=== PATIENT | male | born 1960 | race Native Hawaiian/Other Pacific Islander ===

== ENCOUNTER 2016-11-07 12:18 | Emergency (ER) | payer OTHER ==
[~2016-11-07] VITALS: Ht 182.9 cm; Wt 122.5 kg
[~2016-11-07 12:18] MED LIST: ALBUTEROL0.083 % IN; ALPR0.5T24 PO; AMLO10TA PO; AMLO2.5T PO; ASA LO-DOSE81 MG PO; CYCL10TA35 PO; DIGOXIN0.25 MG PO; FLUT0.05 NAS; HYDR-2748 PO; IBUP800T30 PO; IPRASOL5 IN; LISI10TA11 PO; PENI500T14 PO; SIMV10TA PO; TRAM50TA PO
[2016-11-07 12:45] VITALS: BP 148/95; TEMP 98.6
== END 2016-11-07 13:55 | disposition home or self-care (01) ==
LOC: ED 12:18
DX: K04.7 Periapical abscess without sinus (principal); R68.84 Jaw pain
CPT/HCPCS: 96365; 96375; 99284; J0696; J1885

== ENCOUNTER 2016-12-14 11:13 | Emergency (ER) | payer OTHER ==
[~2016-12-14] VITALS: Ht 182.9 cm; Wt 99.8 kg
[2016-12-14 12:35] VITALS: BP 161/90; TEMP 98.2
== END 2016-12-14 12:35 | disposition home or self-care (01) ==
LOC: ED 11:13
DX: K08.89 Other specified disorders of teeth and supporting structures (principal); K04.7 Periapical abscess without sinus
CPT/HCPCS: 99282

== ENCOUNTER 2017-05-11 14:41 | Emergency (ER) | payer OTHER ==
[~2017-05-11] VITALS: Ht 182.9 cm; Wt 122.5 kg
[2017-05-11 15:50] LABS: PLATELET COUNT 217 K/uL (142-355)
[2017-05-11 15:57] LABS: POTASSIUM 3.8 mmol/L (3.6-5.2); SODIUM 137 mmol/L (136-145)
[2017-05-11 19:28] VITALS: BP 154/97; TEMP 98.2
== END 2017-05-11 19:28 | disposition home or self-care (01) ==
LOC: ED 14:41
PROVIDERS: Emergency Medicine
DX: J44.1 Chronic obstructive pulmonary disease with (acute) exacerbation (principal)
CPT/HCPCS: 36415; 36600; 80053; 82550; 82805; 83880; 84484; 85027; 94640; 94664; 94760; 96365; 96375; 99284; J0696; J2930

== ENCOUNTER 2017-09-18 13:25 | Outpatient (CLI) | payer OTHER | END 2017-09-18 19:22 | disposition home or self-care (01) | LOC: RAD 13:25 | DX: M47.816 Spondylosis without myelopathy or radiculopathy, lumbar region (principal); M46.1 Sacroiliitis, not elsewhere classified ==

== ENCOUNTER 2019-08-26 05:35 | Outpatient (CLI) | payer OTHER ==
[2019-08-26] MEDS ORDERED: PERCOCET1 TA3 PO (10:33)
[2019-08-26] MEDS ORDERED: GABA300C2 PO (10:35)
[2019-08-26] MEDS ORDERED: CLON0.1T16 PO (10:36)
[2019-08-26] MEDS ORDERED: PROAIR HFA INH (10:39)
[2019-08-26] MEDS ORDERED: EDLUAR10 MG PO (10:41)
[2019-08-27] MEDS ORDERED: [UNRECOGNIZED DRUG - OTHER] IVP (13:14)
== END 2019-08-26 05:42 | disposition short-term general hospital (02) ==
LOC: AMB 05:35
DX: R06.09 Other forms of dyspnea (principal); I48.91 Unspecified atrial fibrillation
CPT/HCPCS: A0425; A0427

== ENCOUNTER 2019-08-26 05:44 | Inpatient (IN) | payer OTHER ==
[2019-08-26] VITALS (7 sets, daily range): BP systolic 104–148; BP diastolic 60–96; TEMP 97.9–98.9; Ht 182.9 cm; Wt 117.2 kg
[~2019-08-26] VITALS: Ht 182.9 cm; Wt 117.2 kg
[2019-08-26 06:18] LABS: POTASSIUM 3.8 mmol/L (3.6-5.2); SODIUM 136 mmol/L (136-145)
[2019-08-26 06:26] LABS: PLATELET COUNT 251 K/uL (142-355)
[2019-08-26 06:46] LABS: PARTIAL THROMBOPLASTIN TIME 26.8 SECONDS (24.5-33.6)
[2019-08-26] MEDS ORDERED: PERCOCET1 TA3 PO (10:33)
[2019-08-26] MEDS ORDERED: GABA300C2 PO (10:35)
[2019-08-26] MEDS ORDERED: CLON0.1T16 PO (10:36)
[2019-08-26] MEDS ORDERED: PROAIR HFA INH (10:39)
[2019-08-26] MEDS ORDERED: EDLUAR10 MG PO (10:41)
[2019-08-26 16:12] LABS: POTASSIUM 4.3 mmol/L (3.6-5.2)
[2019-08-27 04:05] VITALS: BP 127/52; TEMP 98.4
[2019-08-27 06:00] LABS: PLATELET COUNT 140 K/uL (142-355)
[2019-08-27 09:20] VITALS: BP 132/77; TEMP 98
[2019-08-27] MEDS ORDERED: [UNRECOGNIZED DRUG - OTHER] IVP (13:14)
[2019-08-27 20:00] VITALS: BP 162/81; TEMP 98.4
[2019-08-28] VITALS: BP 167/84; TEMP 99.1
[2019-08-28 04:00] VITALS: BP 151/71; TEMP 98.6
[2019-08-28 11:13] LABS: PLATELET COUNT 153 K/uL (142-355)
[2019-08-28 13:23] VITALS: BP 140/70; TEMP 98.4
[2019-08-28] MEDS ORDERED: ZESTRIL40 MG PO (14:34)
[2019-08-28 16:33] VITALS: BP 146/59; TEMP 98.4
[2019-08-28 20:00] VITALS: BP 179/82; TEMP 99.1
[2019-08-29] VITALS: BP 153/65; TEMP 98.8
[2019-08-29 04:00] VITALS: BP 151/70; TEMP 98.3
[2019-08-29 05:01] LABS: POTASSIUM 3.5 mmol/L (3.6-5.2)
[2019-08-29 05:30] LABS: PLATELET COUNT 156 K/uL (142-355)
[2019-08-29 08:37] VITALS: BP 147/78; TEMP 98.5
[2019-08-29] MEDS ORDERED: FLUC150T PO (09:57)
[2019-08-29] MEDS ORDERED: Flonase Nasal Inhale NAS (09:58)
[2019-08-29] MEDS ORDERED: LEVAQUIN 500MG TAB PO (09:59)
[2019-08-29] MEDS ORDERED: PRED10TA27 PO (10:00)
[2019-08-29] MEDS ORDERED: XOPENEX 1.25MG INH 3 INH (10:00)
== END 2019-08-29 18:44 | disposition home or self-care (01) | DRG 189 ==
LOC: ED 05:44 → MED/SURG 07:15
PROVIDERS: Internal Medicine; ADMIT Hospitalist
DX: J96.00 Acute respiratory failure, unspecified whether with hypoxia or hypercapnia (principal); I48.91 Unspecified atrial fibrillation; N39.0 Urinary tract infection, site not specified; J44.1 Chronic obstructive pulmonary disease with (acute) exacerbation; I10 Essential (primary) hypertension; Z86.12 Personal history of poliomyelitis; Z72.0 Tobacco use; J44.0 Chronic obstructive pulmonary disease with (acute) lower respiratory infection; J20.9 Acute bronchitis, unspecified
CPT/HCPCS: 36415; 36600; 80048; 80053; 80162; 80320; 81000; 82550; 82805; 83880; 84484; 85027; 85379; 85610; 85730; 87040; 87070; 87077; 87086; 87088; 87185; 87186; 87205; 87502; 87651; 87899; 90732; 93005; 94640; 94664; 94760; 96360; 96365; 96375; 99284; J0456; J0696; J1650; J1940; J2270; J2405; J2920; J2930; J3490

== ENCOUNTER 2019-10-20 02:28 | Emergency (ER) | payer OTHER ==
[~2019-10-20] VITALS: Ht 182.9 cm; Wt 117.0 kg
[~2019-10-20 02:28] MED LIST changes: +CLON0.1T16 PO; +EDLUAR10 MG PO; +FLUC150T PO; +Flonase Nasal Inhale NAS; +GABA300C2 PO; +LEVAQUIN 500MG TAB PO; +PERCOCET1 TA3 PO; +PRED10TA27 PO; +PROAIR HFA INH; +XOPENEX 1.25MG INH 3 INH; +ZESTRIL40 MG PO; +[UNRECOGNIZED DRUG - OTHER] IVP
[2019-10-20 02:29] VITALS: TEMP 97.2
[2019-10-20 03:00] LABS: PLATELET COUNT 281 K/uL (142-355)
[2019-10-20 03:24] LABS: POTASSIUM 5.3 mmol/L (3.6-5.2); SODIUM 135 mmol/L (136-145)
[2019-10-20 04:12] VITALS: BP 84/34
== END 2019-10-20 04:41 | disposition short-term general hospital (02) ==
LOC: ED 02:28
PROVIDERS: Emergency Medicine
PROC: 5A12012 Performance of Cardiac Output, Single, Manual (ICD-10-PCS; principal; 2019-10-20)
PROC: 0T9B70Z Drainage of Bladder with Drainage Device, Via Natural or Artificial Opening (ICD-10-PCS; 2019-10-20)
PROC: 0D9670Z Drainage of Stomach with Drainage Device, Via Natural or Artificial Opening (ICD-10-PCS; 2019-10-20)
DX: I46.9 Cardiac arrest, cause unspecified (principal); I48.91 Unspecified atrial fibrillation
CPT/HCPCS: 36600; 43754; 51702; 80053; 82550; 82553; 82805; 84484; 85007; 85027; 92950; 93005; 96360; 96365; 96375; 96376; 99285; 99291; 99292; J0171; J0282; J0461; J1265; J2060; J2250; J7060